=== PATIENT | male | born 1965 | race Two or more races ===

== ENCOUNTER 2024-08-04 08:05 | Inpatient (IN) | payer OTHER ==
[~2024-08-04] VITALS: Ht 167.6 cm; Wt 74.9 kg
[2024-08-04] VITALS (19 sets, daily range): BP systolic 112–141; BP diastolic 64–94; PULSE 64–92; RESP 15–24; TEMP 36.7–36.8; O2SAT 98–100
[2024-08-04 08:44] LABS: BASOPHILS % 0.3 % (0.0-2.0); EOSINOPHILS % 0.1 % (0.0-5.0); HEMATOCRIT. 42.6 % (42.0-52.0); HEMOGLOBIN. 13.7 g/dL (14.0-18.0); LYMPHOCYTES % 15.3 % (20.0-50.0); MEAN CORPUSCULAR HEMOGLOBIN 25.9 pg (28.0-32.0); MEAN CORPUSCULAR HGB CONC 32.2 g/dL (31.0-37.0); MEAN CORPUSCULAR VOLUME 80.2 fL (80.0-94.0); MEAN PLATELET VOLUME 8.7 fl (7.4-10.4); MONOCYTES % 3.9 % (2.0-8.0); NEUTROPHILS % 80.4 % (40.0-76.0); PLATELET 217 x1000/uL (130-400); WHITE BLOOD COUNT 7.2 x1000/uL (4.5-11.0)
[2024-08-04 08:53] LABS: CHLORIDE 99 mEq/L (98-107); POTASSIUM 4.1 mEq/L (3.5-5.1); SODIUM 137 mEq/L (136-145)
[2024-08-04 08:54] LABS: CARBON DIOXIDE 19 mEq/L (21-32)
[2024-08-04 08:55] LABS: CALCIUM 9.8 mg/dL (8.7-10.4)
[2024-08-04 08:59] LABS: CREATININE 1.4 mg/dL (0.6-1.3)
[2024-08-04 09:00] LABS: ETHANOL BLOOD < 10 mg/dL (<10); GLUCOSE 288 mg/dL (70-105); UREA NITROGEN BLOOD 11 mg/dL (9-23)
[2024-08-04 09:01] LABS: ALANINE AMINOTRANSFERASE 34 IU/L (10-49); ALBUMIN 5.3 g/dL (3.2-4.8); ASPARTATE AMINOTRANSFERASE 36 IU/L (<34)
[2024-08-04 09:02] LABS: BILIRUBIN DIRECT 0.1 mg/dL (<=3.0); BILIRUBIN TOTAL 0.3 mg/dL (0.1-1.0); PROTEIN TOTAL 7.9 g/dL (6.0-8.3)
[2024-08-04 09:16] LABS: BETA HYDROXYBUTYRATE 6.9 mMol/L (0.0-0.3)
[2024-08-04] MEDS: SODIUM CHLORIDE 0.9% 1,000 ML IV ONE ×2 (09:28→10:48)
[2024-08-04 09:48] LABS: TROPONIN I HIGH SENSITIVITY < 4 ng/L (3.0-53)
[2024-08-04] MEDS: KETOROLAC 30MG/ML VIAL IV SCH (10:50)
[2024-08-04] MEDS: ONDANSETRON HCL 4MG/2ML INJ IV SCH (10:50)
[2024-08-04 11:13] LABS: CLARITY URINE CLEAR (CLEAR); COLOR URINE YELLOW (YELLOW); GLUCOSE URINE 3+ (NEGATIVE); KETONES URINE 4+ (NEGATIVE); LEUKOCYTE ESTERASE URINE NEGATIVE (NEGATIVE); NITRITE URINE NEGATIVE (NEGATIVE); OCCULT BLOOD URINE 1+ (NEGATIVE); PH URINE 5.5 (4.5-8.0); PROTEIN URINE 3+ (NEGATIVE); SPECIFIC GRAVITY URINE 1.024 (1.005-1.030); UROBILINOGEN URINE 0.2 E.U./dL (0.2-1.0)
[2024-08-04 11:43] LABS: BACTERIA URINE NONE SEEN; SQUAMOUS EPITHELIAL CELL URINE NONE SEEN /lpf (RARE/1+); YEAST URINE NONE SEEN
[2024-08-04 11:44] LABS: RBC URINE 0-2 /hpf (0-2); WBC URINE NONE SEEN /hpf (0-2)
[2024-08-04 11:53] LABS: BG CARBOXYHEMOGLOBIN 0.2 % (0.5-1.5); BG DEOXYHEMOGLOBIN 2.1 % (0.0-5.0); BG FRACTION INSPIRED OXYGEN 21; BG HCO3 ACT 12.6 mmol/L (21.0-28.0); BG METHEMOGLOBIN 0.1 % (0.5-1.5); BG OXYGEN SATURATION 97.9 % (94.0-98.0); BG OXYHEMOGLOBIN 97.6 % (94.0-98.0); BG PCO2 28.7 mmHg (35.0-48.0); BG PH 7.259 (7.350-7.450); BG PO2 122.8 mmHg (83.0-108.0); BG SAMPLE SITE RIGHT RADIAL; BG TOTAL HEMOGLOBIN 12.9 g/dL (13.5-17.5); BG VENT MODE ROOM AIR
[2024-08-04] MEDS ORDERED: INSULIN REGULAR (HUMULIN R) 1000UNITS/10ML VIAL IV NR (12:15)
[2024-08-04] MEDS ORDERED: BLOOD SUGAR DIAGNOSTIC STRIP TEST PRN ×2 (12:15→14:15)
[2024-08-04] MEDS ORDERED: DEXTROSE 50% WATER 50ML SYRINGE IV PRN ×2 (12:15→14:15)
[2024-08-04] MEDS: BLOOD SUGAR DIAGNOSTIC STRIP TEST SCH ×2 (13:04→20:00)
[2024-08-04] MEDS ORDERED: GUAIFENESIN 200MG/10ML SUGAR FREE UDC PO PRN (14:15)
[2024-08-04] MEDS ORDERED: IPRATROPIUM/ALBUTEROL 0.5-3(2.5)MG/3ML NEB HHN PRN (14:15)
[2024-08-04] MEDS ORDERED: CLONIDINE 0.1MG TABLET PO PRN (14:15)
[2024-08-04] MEDS ORDERED: ONDANSETRON HCL 4MG/2ML INJ IV PRN (14:15)
[2024-08-04] MEDS ORDERED: MAGNESIUM/ALUMINUM HYDROXIDE/SIMETHICONE 30ML UDC PO PRN (14:15)
[2024-08-04] MEDS ORDERED: DOCUSATE SODIUM 100MG CAPSULE PO PRN (14:15)
[2024-08-04] MEDS ORDERED: DEXT 5%/0.9% NACL 1,000 ML IV SCH (14:30)
[2024-08-04 15:06] LABS: CHLORIDE 118 mEq/L (98-107); POTASSIUM 4.2 mEq/L (3.5-5.1); SODIUM 144 mEq/L (136-145)
[2024-08-04 15:12] LABS: CREATININE 0.7 mg/dL (0.6-1.3); GLUCOSE 164 mg/dL (70-105); UREA NITROGEN BLOOD < 5 mg/dL (9-23)
[2024-08-04 15:21] LABS: CALCIUM 5.4 mg/dL (8.7-10.4); CARBON DIOXIDE < 10 mEq/L (21-32)
[2024-08-04] MEDS: SODIUM BICARBONATE 8.4% 50MEQ/50ML SYR IV NR (15:45)
[2024-08-04] MEDS: INSULIN REGULAR 100U/100ML PMX 100 ML IV SCH (16:31)
[2024-08-04 16:43] LABS: CHLORIDE 111 mEq/L (98-107); POTASSIUM 3.6 mEq/L (3.5-5.1); SODIUM 142 mEq/L (136-145)
[2024-08-04 16:44] LABS: CARBON DIOXIDE 11 mEq/L (21-32)
[2024-08-04 16:51] LABS: PHOSPHORUS 2.4 mg/dL (2.5-4.9)
[2024-08-04] MEDS ORDERED: DEXT 5%/0.9% NACL KCL 20MEQ/L 1,000 ML IV SCH (18:08)
[2024-08-04] MEDS: FOLIC ACID 1 MG, THIAMINE HCL 100 MG, MVI, ADULT NO.1 10 ML in DEXTROSE 5% WATER 1,000 ML IV SCH (18:45)
[2024-08-04] MEDS: CALCIUM GLUCONATE 1GM PREMIX 50 ML IV NR (19:28)
[2024-08-04] MEDS: MAGNESIUM 4 G PREMIX 100 ML IV SCH (19:28)
[2024-08-04] MEDS: THIAMINE HCL 100 MG in SODIUM CHLORIDE 0.9% 49 ML IV NR (19:28)
[2024-08-04] MEDS: POTASSIUM PHOSPHATE 20 MMOL in DEXT 5% WATER 243.3333 ML IV SCH (19:28)
[2024-08-04] MEDS: SODIUM BICARBONATE 8.4% 50MEQ/50ML SYR IV SCH (19:29)
[2024-08-04] MEDS: SODIUM CHLORIDE 0.9% 1,000 ML IV SCH (19:29)
[2024-08-04] MEDS: PNEUMOCOCCAL 20-VAL CONJ-DIP CRM 0.5ML IM ONE (21:15)
[2024-08-04 22:21] LABS: CHLORIDE 106 mEq/L (98-107); POTASSIUM 3.5 mEq/L (3.5-5.1); SODIUM 141 mEq/L (136-145)
[2024-08-04 22:23] LABS: CARBON DIOXIDE 19 mEq/L (21-32)
[2024-08-04 22:30] LABS: PHOSPHORUS 1.4 mg/dL (2.5-4.9)
[2024-08-04] MEDS: DEXT 5%/0.9% NACL KCL 20MEQ/L 1,000 ML IV SCH (22:43)
[2024-08-04 22:46] LABS: HEPATITIS B SURFACE ANTIGEN NEGATIVE (Negative)
[2024-08-04 23:07] LABS: HEPATITIS C AB NON REACTIVE (Neg) (Negative)
[2024-08-04 23:08] LABS: CREATINE KINASE 225 IU/L (46-171); TROPONIN I HIGH SENSITIVITY < 4 ng/L (3.0-53)
[2024-08-04] MEDS: ACETAMINOPHEN 325MG TABLET PO PRN (23:12)
[2024-08-05] VITALS (41 sets, daily range): BP systolic 108–155; BP diastolic 58–98; PULSE 60–97; RESP 11–25; TEMP 36.4–36.8; O2SAT 97–100
[2024-08-05 02:07] LABS: CHLORIDE 106 mEq/L (98-107); POTASSIUM 3.6 mEq/L (3.5-5.1); SODIUM 142 mEq/L (136-145)
[2024-08-05 02:08] LABS: CARBON DIOXIDE 25 mEq/L (21-32)
[2024-08-05 02:15] LABS: PHOSPHORUS 2.4 mg/dL (2.5-4.9)
[2024-08-05 06:13] LABS: BASOPHILS % 0.3 % (0.0-2.0); EOSINOPHILS % 2.1 % (0.0-5.0); HEMATOCRIT. 37.1 % (42.0-52.0); LYMPHOCYTES % 31.6 % (20.0-50.0); MEAN CORPUSCULAR HEMOGLOBIN 26.3 pg (28.0-32.0); MEAN CORPUSCULAR HGB CONC 32.5 g/dL (31.0-37.0); MEAN PLATELET VOLUME 8.7 fl (7.4-10.4); MONOCYTES % 12.5 % (2.0-8.0); NEUTROPHILS % 53.5 % (40.0-76.0); PLATELET 170 x1000/uL (130-400); RED BLOOD CELL COUNT 4.58 mill/uL (4.7-6.1); WHITE BLOOD COUNT 5.1 x1000/uL (4.5-11.0)
[2024-08-05 06:34] LABS: CARBON DIOXIDE 21 mEq/L (21-32); CHLORIDE 107 mEq/L (98-107); POTASSIUM 3.7 mEq/L (3.5-5.1); SODIUM 142 mEq/L (136-145)
[2024-08-05 06:35] LABS: CALCIUM 8.4 mg/dL (8.7-10.4)
[2024-08-05 06:37] LABS: CREATINE KINASE 259 IU/L (46-171)
[2024-08-05 06:40] LABS: CREATININE 1.2 mg/dL (0.6-1.3); GLUCOSE 102 mg/dL (70-105); THYROID STIMULATING HORMONE 1.76 uIU/mL (0.55-4.78); TRIGLYCERIDE 53 mg/dL (0-150); UREA NITROGEN BLOOD 6 mg/dL (9-23)
[2024-08-05 06:41] LABS: CHOLESTEROL 96 mg/dL (<200); LDL CHOLESTEROL 41 mg/dL (5-100); TROPONIN I HIGH SENSITIVITY < 4 ng/L (3.0-53)
[2024-08-05 06:42] LABS: HDL CHOLESTEROL 40 mg/dL (>55)
[2024-08-05] MEDS: THIAMINE HCL 100MG TABLET PO SCH (08:26)
[2024-08-05] MEDS: FOLIC ACID 1MG TABLET PO SCH (08:26)
[2024-08-05] MEDS ORDERED: INSULIN REGULAR (HUMULIN R) 1000UNITS/10ML VIAL IV NR (08:45)
[2024-08-05] MEDS ORDERED: DEXT 5%/0.9% NACL 1,000 ML IV SCH (09:00)
[2024-08-05 09:42] LABS: *AMPHETAMINES SCREEN URINE NEGATIVE (NEGATIVE); *BARBITURATES SCREEN URINE NEGATIVE (NEGATIVE); *BENZODIAZEPINES SCREEN URINE NEGATIVE (NEGATIVE); *COCAINE SCREEN URINE NEGATIVE (NEGATIVE); CANNABINOID URINE SCREEN NEGATIVE (NEGATIVE); ECSTASY MDMA SCREEN URINE NEGATIVE (NEGATIVE); METHADONE URINE SCREEN NEGATIVE (NEGATIVE); OPIATES URINE SCREEN NEGATIVE (NEGATIVE); PHENCYCLIDINE URINE SCREEN NEGATIVE (NEGATIVE)
[2024-08-05 10:49] LABS: BASOPHILS % 0.5 % (0.0-2.0); EOSINOPHILS % 1.5 % (0.0-5.0); HEMATOCRIT. 40.8 % (42.0-52.0); HEMOGLOBIN. 13.1 g/dL (14.0-18.0); LYMPHOCYTES % 20.4 % (20.0-50.0); MEAN CORPUSCULAR HEMOGLOBIN 25.8 pg (28.0-32.0); MEAN CORPUSCULAR HGB CONC 32.2 g/dL (31.0-37.0); MEAN CORPUSCULAR VOLUME 80.3 fL (80.0-94.0); MEAN PLATELET VOLUME 8.4 fl (7.4-10.4); MONOCYTES % 6.4 % (2.0-8.0); NEUTROPHILS % 71.2 % (40.0-76.0); PLATELET 175 x1000/uL (130-400); RED BLOOD CELL COUNT 5.08 mill/uL (4.7-6.1); RED CELL DISTRIBUTION WIDTH 14.9 % (11.6-14.6); WHITE BLOOD COUNT 4.9 x1000/uL (4.5-11.0)
[2024-08-05 11:03] LABS: CARBON DIOXIDE 22 mEq/L (21-32); CHLORIDE 104 mEq/L (98-107); POTASSIUM 3.9 mEq/L (3.5-5.1); SODIUM 140 mEq/L (136-145)
[2024-08-05 11:04] LABS: CALCIUM 8.6 mg/dL (8.7-10.4)
[2024-08-05 11:09] LABS: CREATININE 1.2 mg/dL (0.6-1.3); GLUCOSE 221 mg/dL (70-105); UREA NITROGEN BLOOD 5 mg/dL (9-23)
[2024-08-05 11:11] LABS: PHOSPHORUS 2.2 mg/dL (2.5-4.9)
[2024-08-05] MEDS ORDERED: ACETAMINOPHEN 325MG TABLET PO PRN (13:15)
[2024-08-05 16:21] LABS: POTASSIUM 4.4 mEq/L (3.5-5.1)
[2024-08-05 16:23] LABS: CALCIUM 8.9 mg/dL (8.7-10.4)
[2024-08-05 16:27] LABS: CREATININE 1.3 mg/dL (0.6-1.3)
[2024-08-05] MEDS ORDERED: DEXTROSE 50% WATER 50ML SYRINGE IV PRN (16:30)
[2024-08-05] MEDS: MAGNESIUM 1 G PREMIX 100 ML IV SCH (16:49)
[2024-08-05] MEDS: INSULIN LISPRO 100 UNITS/ML SUBCUT SCH (16:49)
[2024-08-05] MEDS: SODIUM PHOSPHATE 15 MMOL in DEXT 5% WATER 245 ML IV SCH (18:55)
[2024-08-05] MEDS ORDERED: INSULIN GLARGINE 100 UNITS/ML SUBCUT SCH (22:00)
== END 2024-08-05 21:21 | disposition short-term general hospital (02) | DRG 420 ==
LOC: ER 08:05 → MICUSO 12:38 → EDBEDREQTM 12:39 → EDBEDREQSVC 12:39 → EDBEDREQ 12:39 → ENRESERV 15:37 → 7WST 08-05 19:10
PROVIDERS: ADMIT Hospitalist; ATTEND Hospitalist
DX: E11.10 Type 2 diabetes mellitus with ketoacidosis without coma (principal); J96.00 Acute respiratory failure, unspecified whether with hypoxia or hypercapnia; E87.3 Alkalosis; N17.9 Acute kidney failure, unspecified; E83.39 Other disorders of phosphorus metabolism; G70.00 Myasthenia gravis without (acute) exacerbation; E11.319 Type 2 diabetes mellitus with unspecified diabetic retinopathy without macular edema; E78.5 Hyperlipidemia, unspecified; E11.36 Type 2 diabetes mellitus with diabetic cataract; F10.20 Alcohol dependence, uncomplicated; K86.1 Other chronic pancreatitis; Z66 Do not resuscitate; E83.42 Hypomagnesemia; N18.9 Chronic kidney disease, unspecified; N20.0 Calculus of kidney; D64.9 Anemia, unspecified; E11.22 Type 2 diabetes mellitus with diabetic chronic kidney disease; I12.9 Hypertensive chronic kidney disease with stage 1 through stage 4 chronic kidney disease, or unspecified chronic kidney disease; F17.210 Nicotine dependence, cigarettes, uncomplicated; E83.51 Hypocalcemia; Z79.4 Long term (current) use of insulin; Z91.148 Patient's other noncompliance with medication regimen for other reason; Z71.6 Tobacco abuse counseling; Z87.442 Personal history of urinary calculi
CPT/HCPCS: 36415; 36600; 71045; 74176; 80048; 80051; 80061; 80076; 80305; 80320; 81003; 82010; 82375; 82550; 82805; 82962; 83036; 83605; 83735; 83930; 84100; 84439; 84443; 84484; 85025; 86705; 87340; 93005; 94640; 99291; A4606; J0610; J1815; J1885; J2405; J3411; J3475; J3490; J7030; J7042; J7060; J7070; G0480

== ENCOUNTER 2024-10-18 08:44 | Emergency (ER) | payer MEDICAID, OTHER ==
[~2024-10-18] VITALS: Ht 170.2 cm; Wt 70.0 kg
[2024-10-18 08:48] VITALS: O2SAT 99
[2024-10-18 09:23] LABS: BASOPHILS % 1.0 % (0.0-2.0); EOSINOPHILS % 1.3 % (0.0-5.0); HEMATOCRIT. 38.8 % (42.0-52.0); HEMOGLOBIN. 12.7 g/dL (14.0-18.0); LYMPHOCYTES % 43.6 % (20.0-50.0); MEAN PLATELET VOLUME 8.3 fl (7.4-10.4); MONOCYTES % 5.0 % (2.0-8.0); NEUTROPHILS % 49.1 % (40.0-76.0); PLATELET 302 x1000/uL (130-400); RED BLOOD CELL COUNT 4.77 mill/uL (4.7-6.1); RED CELL DISTRIBUTION WIDTH 16.9 % (11.6-14.6)
[2024-10-18 09:42] LABS: CREATININE 0.9 mg/dL (0.6-1.3)
[2024-10-18 09:43] LABS: ETHANOL BLOOD 288 mg/dL (<10); UREA NITROGEN BLOOD 7 mg/dL (9-23)
[2024-10-18 09:44] LABS: ASPARTATE AMINOTRANSFERASE 47 IU/L (<34); BILIRUBIN DIRECT 0.1 mg/dL (<=3.0)
[2024-10-18 09:45] LABS: BILIRUBIN TOTAL 0.3 mg/dL (0.1-1.0); PHOSPHORUS 2.4 mg/dL (2.5-4.9); PROTEIN TOTAL 7.2 g/dL (6.0-8.3)
[2024-10-18 10:22] LABS: BG DEOXYHEMOGLOBIN 69.2 % (0.0-5.0)
[2024-10-18 10:42] LABS: CLARITY URINE CLEAR (CLEAR); COLOR URINE YELLOW (YELLOW); GLUCOSE URINE 3+ (NEGATIVE); KETONES URINE TRACE (NEGATIVE); LEUKOCYTE ESTERASE URINE NEGATIVE (NEGATIVE); NITRITE URINE NEGATIVE (NEGATIVE); OCCULT BLOOD URINE NEGATIVE (NEGATIVE); PH URINE 6.5 (4.5-8.0); PROTEIN URINE 1+ (NEGATIVE); SPECIFIC GRAVITY URINE 1.030 (1.005-1.030); UROBILINOGEN URINE 0.2 E.U./dL (0.2-1.0)
[2024-10-18] MEDS: SODIUM CHLORIDE 0.9% 1,000 ML IV ONE (11:00)
[2024-10-18 11:04] LABS: BACTERIA URINE NONE SEEN; RBC URINE 0-2 /hpf (0-2); SQUAMOUS EPITHELIAL CELL URINE RARE /lpf (RARE/1+); WBC URINE 0-2 /hpf (0-2); YEAST URINE NONE SEEN
[2024-10-18] MEDS: MAGNESIUM 2 G PREMIX 50 ML IV NR (11:15)
[2024-10-18 12:28] VITALS: BP 117/80; PULSE 92; RESP 18; TEMP 36.7; O2SAT 99
== END 2024-10-18 12:33 | disposition short-term general hospital (02) ==
LOC: ER 08:59 → CANBEDREQ 10:57 → ER 12:33
DX: E11.65 Type 2 diabetes mellitus with hyperglycemia (principal); I10 Essential (primary) hypertension; Z79.4 Long term (current) use of insulin
CPT/HCPCS: 80076; 80048; 81003; 82010; 80320; 82962; 83605; 83690; 83735; 83930; 84100; 85025; 36415; 71045; 82375; 82803; 96365; 99285; J3475; G0480